=== PATIENT | female | born 1950 | race Caucasian/White ===

== ENCOUNTER 2017-12-11 10:45 | Emergency (ER) | payer OTHER, MEDICARE ==
[~2017-12-11] VITALS: Ht 165.1 cm; Wt 82.3 kg
[~2017-12-11 10:45] MED LIST: LRT5 PO; MOME50SP5; PRLSR20 PO; SUMA25TA12 PO
[2017-12-11 10:54] VITALS: TEMP 36.8; Ht 165.1 cm; Wt 82.3 kg
[2017-12-11] MEDS ORDERED: AMPICILLIN/SULBACTAM SOD INJ 3,000 MG in SODIUM CHLORIDE 0.9% 100ML 100 ML IV STA (11:22)
[2017-12-11] MEDS ORDERED: MONT1TAB3 PO (11:36)
[2017-12-11] MEDS ORDERED: IBUP-1450 PO (11:36)
[2017-12-11] MEDS ORDERED: TRIA1SPR4 (11:36)
[2017-12-11] MEDS ORDERED: FEXO1TAB58 PO (11:36)
[2017-12-11] MEDS ORDERED: CITA10TA8 PO (11:36)
[2017-12-11] MEDS ORDERED: PANT40TA PO (11:36)
[2017-12-11 11:52] LABS: BASO % 0.1 %; BASO ABS # 0.01 K/uL (0-0.2); EOS % 1.7 %; EOS ABS # 0.16 K/uL (0-0.5); HEMATOCRIT 39.4 % (37-47); HEMOGLOBIN 13.2 g/dL (12.0-16.0); IG# 0.02 K/uL (0.00-0.02); LYMPH % 24.1 %; LYMPH ABS # 2.24 K/uL (1.2-3.4); MEAN CELL VOLUME 101.8 fL (80-100); MEAN CORPUSCULAR HEMOGLOBIN 34.1 pg (25-34); MEAN CORPUSCULAR HGB CONC 33.5 g/dl (32-36); MEAN PLATELET VOLUME 9.1 fL (7.4-10.4); MONO ABS # 0.65 K/uL (0.11-0.59); NEUT % 66.9 %; PLATELET COUNT 257 K/uL (130-400); RED CELL DISTRIBUTION WIDTH CV 13.4 % (11.5-14.5); RED CELL DISTRIBUTION WIDTH SD 49.9 fL (36.4-46.3); WHITE BLOOD COUNT 9.28 K/uL (4.8-10.8)
--- NOTE | 2017-12-11 12:01 | EMERGENCY ROOM VISIT NOTE ---
ED Visit Note First contact with patient: 11:00 I have personally seen and evaluated the patient with the physician child life assistant. I agree with the diagnostic/management decisions and have personally been involved in these decisions and agree with the diagnosis.
[2017-12-11 12:15] LABS: CALCIUM 8.3 mg/dl (8.5-10.1); CREATININE 0.72 mg/dl (0.60-1.20); POTASSIUM 3.6 mmol/L (3.5-5.1)
[2017-12-11] MEDS ORDERED: KETOROLAC TROMETHAMINE 30 MG/ML VIAL IV STA (12:19)
[2017-12-11] MEDS ORDERED: AMOX875T PO (12:27)
[2017-12-11] MEDS ORDERED: ACETAMINOPHEN IV 650 MG in EMPTY BAG 0 ML IV ONE (12:30)
[2017-12-11] MEDS ORDERED: ACETAMINOPHEN 500 MG TAB PO STA (12:36)
[2017-12-11 13:05] VITALS: BP 118/68; PULSE 52; O2SAT 96
--- NOTE | 2017-12-21 16:26 | EMERGENCY ROOM VISIT NOTE ---
ED Visit Note First contact with patient: 11:00 Chief Complaint: Cat bite. History of Present Illness: Ms. Louis is a 66-year-old white female who ambulates into the ED accompanied by her complaining of a cat bite to the right index finger. Patient reports she was playing with her cat yesterday and it bit her. Immediately after the injury she washed her finger with antibacterial soap and water. As the evening cold rash she noted some mild swelling and redness in the finger. She reports she took an oral dose of Aleve last night but was able to sleep all night. When she woke up she reevaluated her wound and once again reported that she noted some redness so she took another dose of Aleve for pain. She then reports she went out to breakfast with her family and her daughter who is an RN reported there was a red streak up her arm and encouraged her to come to the emergency department. Currently patient is complaining of a throbbing pain throughout the index finger. She rates her discomfort 7/10. Her pain worsens with palpation and attempts to flex or extend the MCP, PIP and DIP joint. She reports the Aleve has made her very comfortable and decreased her pain. Associated with her pain she reports she has a numbness/tingling sensation throughout the index finger and she has been having some mild nausea but no vomiting. Patient denies fevers, chills, sweats, other skin eruptions, other skin color changes, upper respiratory tract symptoms, chest pain, shortness of breath, abdominal pain, other finger pain, numbness or tingling. Review of Systems: As noted above in history of present illness. 8 body systems were reviewed and found to be negative as noted above. Past Medical History: Chronic [place] area, acid reflux, kidney stones, seasonal allergies, status post hysterectomy, cholecystectomy and removal of nasal polyps. Current Medications: Medications Dose Route/Sig Max Daily Dose Days Date Category Dose Instructions Motrin (Ibuprofen) 600 Mg Tab 600 Mg PO Q6H PRN 12/11/17 Reported TAKE WITH FOOD Nasacort Allergy 24Hr (Triamcinolone Acetonide (Nasal) 55 Mcg/Act Spr 12/11/17 Reported Tanya-D 24 Hour Allergy (Fexofenadine-Pseudoephedrine) 1 Tab Tab 1 Tab PO DAILY 12/11/17 Reported Celexa (Citalopram Hydrobromide) 10 Mg Tab 10 Mg PO DAILY 12/11/17 Reported Singulair (Montelukast Sodium) 10 Mg Tab 10 Mg PO DAILY 12/11/17 Reported Protonix (Pantoprazole Sodium) 40 Mg Tab 40 Mg PO DAILY 12/11/17 Reported Allergies to Medications: Morphine, gabapentin. Social History: Patient is currently employed; she lives with her and feels safe in her home environment; she admits to tobacco and alcohol use. Tetanus Immunization Status: Patient reports up-to-date. Physical Examination: Vital Signs: Date Time Temp Pulse Resp B/P (MAP) Pulse Ox O2 Delivery O2 Flow Rate FiO2 12/11/17 13:05 52 118/68 96 Room Air 12/11/17 10:54 36.8 71 18 126/68 97 Room Air GENERAL: 66-year-old female in mild distress due to pain, nontoxic-appearing, afebrile and hemodynamically stable. NEUROLOGICAL: Awake, alert and oriented to person, place and time. Answering questions appropriately and following commands. Normal gait. Good hand eye coordination. No focal motor sensory deficits. SKIN: Warm, dry and pink. Right Index Finger: 2 puncture wounds were noted to the finger. No active bleeding. There is erythema and edema throughout the finger extending to the tip. The area of erythema then streaks of the anterior aspect of the forearm to just before the elbow. This area is warm to the touch but not hot and does not appear cellulitic. HEENT: Atraumatic and normocephalic. PERRLA. Sclera white and conjunctiva pink. No drainage from naris. Oral cavity moist and pink. Pharynx is nonerythematous or edematous. Speech normal. No lymphadenopathy. Trachea midline. No jugular venous distention. THORAX: Lungs sounds are clear to auscultation and equal bilaterally with symmetrical chest wall. ABDOMEN: Flat, soft and nontender. Positive bowel sounds in all quadrants. No guarding, rigidity or organomegaly. RIGHT UPPER EXTREMITY: Please note soft tissue description above under SKIN. No gross bony deformity. No tenderness in the shoulder, elbow or wrist. No axillary lymphadenopathy. Full range of motion of the wrist and hand. No bony deformity of the index finger. Decreased range of motion at the MCP, PIP and DIP joint because of swelling. Capillary refill was brisk. She is able to distinguish light sensations to all dermatomes. ED Course: Patient is assessed as noted above. Patient's medication list was reviewed. Laboratory Testing: Test 12/11/17 11:39 Range/Units White Blood Count 9.28 4.8-10.8 K/uL Red Blood Count 3.87 4.2-5.4 M/uL Hemoglobin 13.2 12.0-16.0 g/dL Hematocrit 39.4 37-47 % Mean Corpuscular Volume 101.8 80-100 fL Mean Corpuscular Hemoglobin 34.1 25-34 pg Mean Corpuscular Hemoglobin Concent 33.5 32-36 g/dl Platelet Count 257 130-400 K/uL Mean Platelet Volume 9.1 7.4-10.4 fL Neutrophils (%) (Auto) 66.9 % Lymphocytes (%) (Auto) 24.1 % Monocytes (%) (Auto) 7.0 % Eosinophils (%) (Auto) 1.7 % Basophils (%) (Auto) 0.1 % Neutrophils # (Auto) 6.20 1.4-6.5 K/uL Lymphocytes # (Auto) 2.24 1.2-3.4 K/uL Monocytes # (Auto) 0.65 0.11-0.59 K/uL Eosinophils # (Auto) 0.16 0-0.5 K/uL Basophils # (Auto) 0.01 0-0.2 K/uL RDW Standard Deviation 49.9 36.4-46.3 fL RDW Coefficient of Variation 13.4 11.5-14.5 % Immature Granulocyte % (Auto) 0.2 % Immature Granulocyte # (Auto) 0.02 0.00-0.02 K/uL Sodium Level 142 136-145 mmol/L Potassium Level 3.6 3.5-5.1 mmol/L Chloride Level 108 98-107 mmol/L Carbon Dioxide Level 28 21-32 mmol/L Anion Gap 6.0 3-11 mmol/L Blood Urea Nitrogen 18 7-18 mg/dl Creatinine 0.72 0.60-1.20 mg/dl Est Creatinine Clear Calc Drug Dose 81.4 ml/min Estimated GFR () 101.1 Estimated GFR (Non- 87.3 BUN/Creatinine Ratio 25.0 10-20 Random Glucose 81 70-99 mg/dl Calcium Level 8.3 8.5-10.1 mg/dl An IV lock was initiated and patient received 3 g of Unasyn IV. Patient was offered pain medication and refused and then just prior to discharge she did request pain medications and when I gave her choice of medications she requested acetaminophen. Patient received 1 g of acetaminophen by mouth for pain. Patient was educated reassessed multiple times during her stay in the emergency department. Patient's case was reviewed with Dr. Sifuentes; he and apparently assessed the patient we agreed on diagnostic approach, treatment, disposition and plan. Patient was educated about today's findings and instructed on her treatment plan ; she verbalized understanding and agreement with this plan. Clinical Impression: Cat bite infection with lymphadenitis. Disposition: Patient discharged home in stable condition accompanied by her ; prior to departure she was reassessed and subjectively reported she was feeling better. Plan: Patient was encouraged to alternate 650 mg of acetaminophen and 600 mg of ibuprofen every 3 hours as needed for persistent pain. Patient was encouraged to try to keep her hand elevated while at rest and also use ice for pain and swelling. Patient was encouraged to continue to clean her wound with antibacterial soap and water. Patient was educated on signs of worsening infection. Patient was encouraged to follow-up with her PCP for recheck or return to the ED for recheck in 36-48 hours. Patient was encouraged return the ED sooner for any signs of worsening infection or any new/concerning symptoms.
== END 2017-12-11 13:10 | disposition home or self-care (01) ==
LOC: C.EDB 10:46 → C.EDC 13:10
DX: S61.250A Open bite of right index finger without damage to nail, initial encounter (principal); W55.01XA Bitten by cat, initial encounter; L08.9 Local infection of the skin and subcutaneous tissue, unspecified; L04.2 Acute lymphadenitis of upper limb; Z79.899 Other long term (current) drug therapy; Z88.6 Allergy status to analgesic agent; Z72.0 Tobacco use